=== PATIENT | male | born 1990 | race Caucasian/White ===

== ENCOUNTER 2017-10-18 00:21 | Emergency (ER) | payer SELFPAY ==
[~2017-10-18] VITALS: Ht 172.7 cm; Wt 91.1 kg
[~2017-10-18 00:21] MED LIST: OMEP20CA9 PO
[2017-10-18 00:25] VITALS: Ht 172.7 cm; Wt 91.1 kg
[2017-10-18] MEDS ORDERED: IBUPROFEN 600 MG TAB PO ONE (02:00)
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
[2017-10-18] MEDS ORDERED: IBUP-1542 PO (04:11)
[2017-10-18] MEDS ORDERED: ORPH100T PO (04:11)
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
== END 2017-10-18 05:07 | disposition home or self-care (01) ==
LOC: FTE 00:21
DX: M54.2 Cervicalgia (principal); M54.5 Low back pain
CPT/HCPCS: 72040